=== PATIENT | male | born 1980 | race Caucasian/White ===

== ENCOUNTER 2018-07-31 17:59 | Emergency (ER) | payer OTHER, SELFPAY ==
[2018-07-31 18:06] VITALS: BP 153/101; PULSE 60; RESP 15; TEMP 36.2; O2SAT 100; BMI 28.7
--- NOTE | 2018-07-31 18:08 | DI.RAD.S_ITS ---
PROCEDURE: XR HAND LT 2V INDICATIONS: injury TECHNIQUE: 2 views of the hand(s) acquired. COMPARISON: None. FINDINGS: No acute fracture dislocation. Mild degenerative change at the first metacarpophalangeal joint. Punctate radiopaque debris projects over the left fifth digit. There is a 0.5 cm linear radiopaque body projecting over the left first carpal metacarpal joint on AP view, with no correlate on lateral view. IMPRESSION: 1. No acute fracture or dislocation of the left hand. Recommend followup radiographs in 7-10 days if there is continued clinical concern. 2. Radiopaque debris projecting over the left fifth digit and left first carpometacarpal joint, which may be within the soft tissues or overlying the left hand. Clinical correlation recommended. Dictated by: Fausto Webber M.D. on 07/31/2018 at 18:53 Approved by: Fausto Webber M.D. on 07/31/2018 at 18:57
--- NOTE | 2018-07-31 18:50 | ED.UPPEXIN ---
HPI - Extremity Injury (Upper) General Chief Complaint: Extremity Injury, Upper Stated Complaint: HAND INJURY Time Seen by Provider: 07/31/18 18:49 Source: patient and family Mode of arrival: ambulatory Limitations: no limitations History of Present Illness HPI narrative: 38-year-old male, former smoker and otherwise healthy presents with his in the chief complaint of a puncture wound to his left hand suffered while working yesterday. He was on a roof and he slipped and fell onto a board which had an exposed nail. He suffered a puncture wound to the palmar surface of his hand and a small tearing laceration. His tetanus is current. He has full range of motion and denies numbness, tingling or weakness. He is otherwise well and free of complaint MD complaint: injury to: left Onset (ago): day(s) Other injuries: none Handedness: right Place: work Severity: mild Relieving factors: none Exacerbating factors: movement of extremity Context: fall, direct blow and laceration Associated symptoms: denies other symptoms Treatments prior to arrival: cold therapy Related Data Previous Rx's Medication Instructions Recorded cephalexin [Keflex] 500 mg PO QID #40 cap 11/05/16 oxycodone 5 - 10 mg PO Q6HP PRN #60 tab 11/05/16 hydrocodone-acetaminophen [[place]] 1 tab PO Q6H PRN #10 tab 11/10/17 cephalexin [Keflex] 500 mg PO QID 7 Days #28 cap 07/31/18 Allergies Allergy/AdvReac Type Severity Reaction Status Date / Time No Known Drug Allergies Allergy Verified 07/31/18 18:06 Review of Systems Constitutional Denies chills, Denies fever(s), Denies lethargy and Denies weakness Eyes Denies change in vision, Denies eye discharge, Denies irritation and Denies loss of vision ENT Ears, Nose, Mouth, and Throat: Denies change in voice, Denies neck pain and Denies sore throat Cardiovascular Denies chest pain, Denies irregular heart rhythm, Denies lightheadedness, Denies palpitations, Denies dyspnea, Denies dyspnea on exertion and Denies orthopnea Respiratory Denies cough, Denies dyspnea, Denies dyspnea on exertion and Denies wheezing Gastrointestinal Gastrointestinal: Denies abdominal pain, Denies change in bowel habits, Denies diarrhea, Denies nausea and Denies vomiting Genitourinary Denies hematuria, Denies flank pain, Denies urinary incontinence and Denies urinary urgency Musculoskeletal Denies neck pain Integumentary/Breasts Denies pruritus, Denies erythema, Denies rash and Reports wounds Neurologic Denies confusion, Denies loss of vision and Denies weakness Psychiatric Denies anxiety, Denies confusion, Denies depression, Denies homicidal ideation and Denies suicidal ideation Endocrine Denies palpitations Hematologic/Lymphatic Denies easy bruising Allergic/Immunologic Denies wheezing Exam Narrative Exam Narrative: GEN: AOx3 and in mild distress EYES: Pupils are equal, round, and reactive to light and accommodation. Extraoccular muscles are intact bilaterally. There is no subconjunctival hemorrhage or exudate. CHEST: Lungs are clear to auscultation bilaterally and free of wheezes, rales, or rhonchi. Heart rate is regular rhythm, there are no murmurs, clicks, rubs, or gallops. There is no chest wall tenderness. ABD: Abdomen is soft and nontender. There is no guarding or rebound. Bowel sounds are normal in all 4 quadrants. There is no mass or organomegaly. EXT: mild tenderness to palmar surface of left hand without erythema or swelling. Superficial laceration in the palmar crease with no active bleeding. No obvious foreign body notedFull painless ROM of all extremities with no loss of sensation or strength. SKIN: Warm, pink, and dry. No erythema or rash Initial Vital Signs Initial Vital Signs: Vital Signs Temperature 97.1 F L 07/31/18 18:06 Pulse Rate 60 07/31/18 18:06 Respiratory Rate 15 07/31/18 18:06 Blood Pressure 153/101 H 07/31/18 18:06 Pulse Oximetry 100 07/31/18 18:06 Procedures Laceration Repair Laceration 1: Side (If applicable): left Size (cm): 2 Description: linear Depth: simple, single layer Pre-repair: wound explored and deep structures intact Skin layer closed with: nylon Size (cm): 5-0 Number of sutures: 2 Technique: simple, interrupted Course Orders Ordered: ED Orders 07/31/18 18:08 XR hand LT 2V Stat Vital Signs - 8 hr 07/31/18 18:06 Temperature 97.1 F L Pulse Rate 60 Respiratory Rate 15 Blood Pressure 153/101 H Pulse Oximetry 100 MDM - Extremity Injury (Upper) Imaging Data Hand Xray: Radiologist's impression: [address] [address] XRay Report Signed Patient: Gino Bernard [facility]#: [id number] : 1980Acct:[id number] Age/Sex: 38 / MDate of Service: 07/31/18 Loc: ED Accession Number: [id number] Procedure: XR hand LT 2V Ordering Provider: Silvia Holliday D.O. PROCEDURE: XR HAND LT 2V INDICATIONS: injury TECHNIQUE: 2 views of the hand(s) acquired. COMPARISON: None. FINDINGS: No acute fracture dislocation. Mild degenerative change at the first metacarpophalangeal joint. Punctate radiopaque debris projects over the left fifth digit. There is a 0.5 cm linear radiopaque body projecting over the left first carpal metacarpal joint on AP view, with no correlate on lateral view. IMPRESSION: 1. No acute fracture or dislocation of the left hand. Recommend followup radiographs in 7-10 days if there is continued clinical concern. 2. Radiopaque debris projecting over the left fifth digit and left first carpometacarpal joint, which may be within the soft tissues or overlying the left hand. Clinical correlation recommended. Dictated by: Fausto Webber M.D. on 07/31/2018 at 18:53 Approved by: Fausto Webber M.D. on 07/31/2018 at 18:57 [facility] Narrative Medical decision making narrative: x-ray notes radiopaque foreign bodies which are possibly within the soft tissue however they are not in the region the patient's wound and there is no obvious external finding to suggest air within the soft tissue Discharge Plan Departure Patient Disposition: Home Clinical Impression: Puncture wound of hand Discharge Date/Time: 07/31/18 19:57 Interventions: ED Discharge Assessment Last Done: 07/31/18 19:56 Instructions: DI for Puncture Wound Activity Restrictions/Additional Instructions: *You have been diagnosed with [ puncture wound left hand ] *What to do: *Take medications as directed *Follow up with your primary care provider in 2-3 days, call for an appointment. Let them know you were seen in the Emergency Department and that we ask that you be seen in follow up *Return to ER if you should have any new, worsening or concerning symptoms Please keep the wound clean and dry to the best of your ability. Please monitor for signs of infection such as redness to the skin or increasing pain. Have the sutures removed by your doctor in about 7 days. If you are unable to get into your doctor, we would be happy to remove the sutures in that same timeframe. Prescriptions: New cephalexin [Keflex] 500 mg capsule 500 mg PO QID 7 Days Qty: 28 RF: 0 No Action oxycodone 5 MG tablet 5 - 10 mg PO Q6HP PRNQty: 60 RF: 0 cephalexin [Keflex] 500 MG capsule 500 mg PO QID Qty: 40 RF: 0 hydrocodone-acetaminophen [[place]] 5-325 mg tablet 1 tab PO Q6H PRN (Reason: pain) Qty: 10 RF: 0
== END 2018-07-31 19:57 | disposition home or self-care (01) ==
PROVIDERS: Emergency Provider Emergency Medicine
DX: S61.432A Puncture wound without foreign body of left hand, initial encounter (principal); W45.0XXA Nail entering through skin, initial encounter; Y99.0 Civilian activity done for income or pay
CPT/HCPCS: 12001; 73120; 99283